=== PATIENT | female | born 1990 | race Caucasian/White ===

== ENCOUNTER → 2018-11-02 | Outpatient (CLI) | payer OTHER ==
[~2018-11-02] MED LIST: AUGMENTIN 875 M1 TAB PO; CLARITIN10 MG PO; MOTRIN800 MG PO; SEPTRA DS 800 M1 TAB PO; ZITHROMAX Z PA250 MG PO
[2018-11-02 19:48] LABS: BASO % 0.5 % (0.0-1.0); EOS # 0.2 10*3/uL (0.0-0.4); EOS % 2.4 % (1.0-4.0); HEMOGLOBIN 14.6 g/dl (12.0-16.0); LYMPH # 2.2 10*3/uL (1.3-4.4); LYMPH % 27.8 % (27.0-41.0); MEAN CELL VOLUME 90.2 fl (81.0-99.0); MEAN CORPUSCULAR HGB 29.9 pg (27.0-31.0); MEAN CORPUSCULAR HGB CONC 33.2 g/dl (33.0-37.0); MEAN PLATELET VOLUME 9.7 fl (9.6-12.3); MONO # 0.5 10*3/uL (0.1-1.0); MONO % 5.8 % (3.0-9.0); NEUT % 63.1 % (47.0-73.0); PLATELET COUNT AUTOMATED 442 10*3/uL (130-400); RED BLOOD COUNT 4.88 10*6/uL (4.10-5.10); RED CELL DISTRI WIDTH 13.1 % (0-14.5)
[2018-11-02 20:03] LABS: ALBUMIN 3.6 gm/dl (3.1-4.5); ALKALINE PHOSPHATASE 89 U/L (45-117); BUN 7 mg/dl (7-24); CHLORIDE 106 mmol/L (98-107); CREATININE 0.78 mg/dL (0.55-1.02); POTASSIUM 3.8 mmol/L (3.5-5.1); SGOT/AST 16 IU/L (3-35); SGPT/ALT 28 U/L (12-78); SODIUM 138 mmol/L (136-145); TOTAL PROTEIN 7.4 gm/dL (6.4-8.2)
[2018-11-04 20:09] LABS: % CD19 <1 % (6-23); % CD3 90 % (62-87); % CD4 61 % (32-64); % CD45RA 33 % (28-71); % CD45RO 67 % (28-72); % CD8 28 % (15-46); ABSOLUTE CD19 <1 cells/uL (91-610); ABSOLUTE CD3 1987 cells/uL (570-2400); ABSOLUTE CD4 1349 cells/uL (430-1800); ABSOLUTE CD45RA 466 cells/uL (150-870); ABSOLUTE CD45RO 936 cells/uL (190-1050); ABSOLUTE CD8 613 cells/uL (210-1200); ABSOLUTE NATURAL KILLER CELLS 212 cells/uL (78-470); CD4:CD8 RATIO 2.18 ratio (0.80-3.90); NATURAL KILLER CELLS % 10 % (4-26)
== END | disposition home or self-care (01) ==
LOC: LAB 18:19
PROVIDERS: Psychiatry & Neurology Neurology
DX: G35 Multiple sclerosis (principal); Z79.899 Other long term (current) drug therapy

== ENCOUNTER → 2019-09-05 | Outpatient (CLI) | payer OTHER ==
[2019-09-05 17:02] LABS: BASO # 0.1 10*3/uL (0.0-0.1); BASO % 0.6 % (0.0-1.0); EOS # 0.1 10*3/uL (0.0-0.4); EOS % 0.9 % (1.0-4.0); HEMATOCRIT 43.2 % (37.0-47.0); HEMOGLOBIN 14.5 g/dl (12.0-16.0); LYMPH # 3.1 10*3/uL (1.3-4.4); LYMPH % 24.7 % (27.0-41.0); MEAN CORPUSCULAR HGB 30.2 pg (27.0-31.0); MEAN CORPUSCULAR HGB CONC 33.6 g/dl (33.0-37.0); MEAN PLATELET VOLUME 8.8 fl (9.6-12.3); MONO % 8.1 % (3.0-9.0); NEUT # 8.3 10*3/uL (2.3-7.9); NEUT % 65.4 % (47.0-73.0); PLATELET COUNT AUTOMATED 410 10*3/uL (130-400); RED CELL DISTRI WIDTH 12.3 % (0-14.5); WHITE BLOOD COUNT 12.7 10*3/uL (4.8-10.8)
[2019-09-05 17:18] LABS: ALBUMIN 3.6 gm/dl (3.1-4.5); ALKALINE PHOSPHATASE 74 U/L (45-117); BUN 15 mg/dl (7-24); CHLORIDE 106 mmol/L (98-107); CREATININE 0.84 mg/dL (0.55-1.02); POTASSIUM 4.1 mmol/L (3.5-5.1); SGOT/AST 15 IU/L (3-35); SGPT/ALT 32 U/L (12-78); SODIUM 138 mmol/L (136-145); TOTAL PROTEIN 7.3 gm/dL (6.4-8.2)
[2019-09-08 12:04] LABS: % CD19 < 1 % (6-23); % CD3 86 % (62-87); % CD4 59 % (32-64); % CD45RA 32 % (28-71); % CD45RO 68 % (28-72); % CD8 25 % (15-46); ABSOLUTE CD19 4 cells/uL (91-610); ABSOLUTE CD3 2577 cells/uL (570-2400); ABSOLUTE CD4 1772 cells/uL (430-1800); ABSOLUTE CD45RA 623 cells/uL (150-870); ABSOLUTE CD45RO 1333 cells/uL (190-1050); ABSOLUTE CD8 747 cells/uL (210-1200); ABSOLUTE NATURAL KILLER CELLS 387 cells/uL (78-470); CD4:CD8 RATIO 2.36 ratio (0.80-3.90); NATURAL KILLER CELLS % 13 % (4-26)
== END | disposition home or self-care (01) ==
LOC: LAB 16:45
PROVIDERS: Psychiatry & Neurology Neurology
DX: G35 Multiple sclerosis (principal)

== ENCOUNTER → 2020-02-24 | Outpatient (CLI) | payer OTHER | END | disposition home or self-care (01) | LOC: LAB 00:08 | DX: G35 Multiple sclerosis (principal) ==

== ENCOUNTER → 2020-02-26 | Outpatient (CLI) | payer OTHER | END | disposition home or self-care (01) | LOC: COVID19 14:48 | DX: B34.9 Viral infection, unspecified (principal); Z03.818 Encounter for observation for suspected exposure to other biological agents ruled out; Z78.9 Other specified health status ==

== ENCOUNTER → 2020-03-02 | Outpatient (CLI) | payer OTHER ==
[2020-03-02 16:31] LABS: BASO # 0.1 10*3/uL (0.0-0.1); BASO % 0.6 % (0.0-1.0); EOS # 0.1 10*3/uL (0.0-0.4); EOS % 0.6 % (1.0-4.0); HEMATOCRIT 45.1 % (37.0-47.0); LYMPH # 2.6 10*3/uL (1.3-4.4); LYMPH % 21.3 % (27.0-41.0); MEAN CELL VOLUME 90.6 fl (81.0-99.0); MEAN CORPUSCULAR HGB 30.1 pg (27.0-31.0); MEAN CORPUSCULAR HGB CONC 33.3 g/dl (33.0-37.0); MONO # 0.8 10*3/uL (0.1-1.0); MONO % 6.6 % (3.0-9.0); NEUT # 8.6 10*3/uL (2.3-7.9); NEUT % 70.7 % (47.0-73.0); PLATELET COUNT AUTOMATED 422 10*3/uL (130-400); RED BLOOD COUNT 4.98 10*6/uL (4.10-5.10); RED CELL DISTRI WIDTH 12.7 % (0-14.5); WHITE BLOOD COUNT 12.2 10*3/uL (4.8-10.8)
[2020-03-02 16:58] LABS: ALBUMIN 3.8 gm/dl (3.1-4.5); ALKALINE PHOSPHATASE 78 U/L (45-117); BUN 4 mg/dl (7-24); CHLORIDE 106 mmol/L (98-107); CREATININE 0.75 mg/dL (0.55-1.02); POTASSIUM 3.9 mmol/L (3.5-5.1); SGOT/AST 20 IU/L (3-35); SGPT/ALT 40 U/L (12-78); SODIUM 139 mmol/L (136-145); TOTAL PROTEIN 7.4 gm/dL (6.4-8.2)
== END | disposition home or self-care (01) ==
LOC: LAB 00:19
PROVIDERS: Psychiatry & Neurology Neurology
DX: Z79.899 Other long term (current) drug therapy (principal)

== ENCOUNTER → 2020-04-02 | Outpatient (CLI) | payer OTHER ==
[2020-04-04 19:07] LABS: % CD19 2 % (6-23); % CD3 86 % (62-87); % CD4 60 % (32-64); % CD45RA 29 % (28-71); % CD45RO 71 % (28-72); % CD8 25 % (15-46); ABSOLUTE CD19 41 cells/uL (91-610); ABSOLUTE CD3 2300 cells/uL (570-2400); ABSOLUTE CD4 1597 cells/uL (430-1800); ABSOLUTE CD45RA 418 cells/uL (150-870); ABSOLUTE CD45RO 1024 cells/uL (190-1050); ABSOLUTE CD8 665 cells/uL (210-1200); ABSOLUTE NATURAL KILLER CELLS 317 cells/uL (78-470); NATURAL KILLER CELLS % 12 % (4-26)
== END | disposition home or self-care (01) ==
LOC: LAB 03-30 15:45
PROVIDERS: Psychiatry & Neurology Neurology
DX: Z79.899 Other long term (current) drug therapy (principal)

== ENCOUNTER → 2020-09-03 | Outpatient (CLI) | payer OTHER ==
[2020-09-03 17:12] LABS: BASO # 0.1 10*3/uL (0.0-0.1); BASO % 0.5 % (0.0-1.0); EOS # 0.1 10*3/uL (0.0-0.4); HEMATOCRIT 42.9 % (37.0-47.0); LYMPH # 2.9 10*3/uL (1.3-4.4); LYMPH % 23.8 % (27.0-41.0); MEAN CELL VOLUME 88.8 fl (81.0-99.0); MEAN CORPUSCULAR HGB 29.2 pg (27.0-31.0); MEAN CORPUSCULAR HGB CONC 32.9 g/dl (33.0-37.0); MONO # 0.9 10*3/uL (0.1-1.0); MONO % 7.3 % (3.0-9.0); NEUT # 8.3 10*3/uL (2.3-7.9); NEUT % 67.2 % (47.0-73.0); PLATELET COUNT AUTOMATED 516 10*3/uL (130-400); RED BLOOD COUNT 4.83 10*6/uL (4.10-5.10); RED CELL DISTRI WIDTH 12.5 % (0-14.5); WHITE BLOOD COUNT 12.3 10*3/uL (4.8-10.8)
[2020-09-03 17:37] LABS: ALBUMIN 3.8 gm/dl (3.1-4.5); ALKALINE PHOSPHATASE 79 U/L (45-117); BUN 7 mg/dl (7-24); CHLORIDE 107 mmol/L (98-107); CREATININE 0.68 mg/dL (0.55-1.02); POTASSIUM 4.1 mmol/L (3.5-5.1); SGOT/AST 17 IU/L (3-35); SGPT/ALT 28 U/L (12-78); SODIUM 141 mmol/L (136-145); TOTAL PROTEIN 7.7 gm/dL (6.4-8.2)
[2020-09-04 11:08] LABS: IMMUNOGLOBULIN G, QNT 704 mg/dL (586-1602); IMMUNOGLOBULIN M, QNT 35 mg/dL (26-217)
[2020-09-05 20:10] LABS: % CD19 0 % (6-23); % CD3 93 % (62-87); % CD4 64 % (32-64); % CD45RA 40 % (28-71); % CD45RO 60 % (28-72); % CD8 27 % (15-46); ABSOLUTE CD19 4 cells/uL (91-610); ABSOLUTE CD3 2829 cells/uL (570-2400); ABSOLUTE CD4 1960 cells/uL (430-1800); ABSOLUTE CD45RA 807 cells/uL (150-870); ABSOLUTE CD45RO 1193 cells/uL (190-1050); ABSOLUTE CD8 820 cells/uL (210-1200); ABSOLUTE NATURAL KILLER CELLS 198 cells/uL (78-470); CD4:CD8 RATIO 2.37 ratio (0.80-3.90); NATURAL KILLER CELLS % 7 % (4-26)
== END | disposition home or self-care (01) ==
LOC: LAB 16:27
PROVIDERS: ATTEND Psychiatry & Neurology Neurology
DX: G35 Multiple sclerosis (principal)

== ENCOUNTER → 2021-03-04 | Outpatient (CLI) | payer OTHER ==
[2021-03-04 16:40] LABS: HEMATOCRIT 43.5 % (37.0-47.0); MEAN CELL VOLUME 88.1 fl (81.0-99.0); MEAN CORPUSCULAR HGB 28.9 pg (27.0-31.0); MEAN CORPUSCULAR HGB CONC 32.9 g/dl (33.0-37.0); MEAN PLATELET VOLUME 9.1 fl (9.6-12.3); PLATELET COUNT AUTOMATED 480 10*3/uL (130-400); RED BLOOD COUNT 4.94 10*6/uL (4.10-5.10); RED CELL DISTRI WIDTH 13.2 % (0-14.5); WHITE BLOOD COUNT 9.8 10*3/uL (4.8-10.8)
[2021-03-04 16:59] LABS: TOTAL CELLS COUNTED 100 #CELLS
[2021-03-04 17:00] LABS: PLATELET SUFFICIENCY NORMAL (NORMAL)
[2021-03-04 17:30] LABS: ALBUMIN 3.7 gm/dl (3.1-4.5); ALKALINE PHOSPHATASE 94 U/L (45-117); BUN 7 mg/dl (7-24); CHLORIDE 110 mmol/L (98-107); CREATININE 0.79 mg/dL (0.55-1.02); POTASSIUM 4.1 mmol/L (3.5-5.1); SGOT/AST 12 IU/L (3-35); SGPT/ALT 30 U/L (12-78); SODIUM 139 mmol/L (136-145); TOTAL PROTEIN 7.4 gm/dL (6.4-8.2)
[2021-03-06 16:08] LABS: % CD19 0 % (6-23); % CD3 88 % (62-87); % CD4 62 % (32-64); % CD45RA 33 % (28-71); % CD45RO 67 % (28-72); % CD8 24 % (15-46); ABSOLUTE CD19 0 cells/uL (91-610); ABSOLUTE CD3 2158 cells/uL (570-2400); ABSOLUTE CD4 1520 cells/uL (430-1800); ABSOLUTE CD45RA 544 cells/uL (150-870); ABSOLUTE CD45RO 1092 cells/uL (190-1050); ABSOLUTE CD8 597 cells/uL (210-1200); ABSOLUTE NATURAL KILLER CELLS 278 cells/uL (78-470); CD4:CD8 RATIO 2.58 ratio (0.80-3.90); NATURAL KILLER CELLS % 11 % (4-26)
== END | disposition home or self-care (01) ==
LOC: LAB 16:11
PROVIDERS: ATTEND Specialist
DX: G35 Multiple sclerosis (principal); D72.819 Decreased white blood cell count, unspecified; Z79.899 Other long term (current) drug therapy